=== PATIENT | female | born 1995 | race Hispanic/Latino ===

== ENCOUNTER → 2022-01-24 | Outpatient (REF) ==
[2022-01-25 06:08] LABS: RUBEOLA IgG ANTIBODY >300.0 AU/mL (Immune >16.4)
[2022-01-25 08:09] LABS: HERPES ZOSTER, VARICELLA IgG 952 index (Immune >165)
== END ==
LOC: M LAB 11:19
PROVIDERS: ATTEND Nurse Practitioner Adult Health
DX: Z00.00 Encounter for general adult medical examination without abnormal findings (principal)

== ENCOUNTER → 2022-02-12 | Outpatient (REF) ==
[2022-02-12 15:35] LABS: RSV AMPLIFICATION NEGATIVE (NEGATIVE)
== END ==
LOC: M EMP 14:13
PROVIDERS: ATTEND Family Medicine
DX: Z20.818 Contact with and (suspected) exposure to other bacterial communicable diseases (principal)

== ENCOUNTER → 2022-03-12 | Outpatient (REF) | LOC: M EMP 10:56 | PROVIDERS: ATTEND Family Medicine | DX: Z11.52 Encounter for screening for COVID-19 (principal) ==

== ENCOUNTER → 2022-05-01 | Outpatient (REF) ==
[2022-05-01 11:34] LABS: RSV AMPLIFICATION NEGATIVE (NEGATIVE)
== END ==
LOC: M EMP 10:28
PROVIDERS: ATTEND Family Medicine
DX: Z11.59 Encounter for screening for other viral diseases (principal)

== ENCOUNTER 2023-10-28 13:29 | Emergency (ER) | payer MEDICAID, MEDICARE, SELFPAY ==
[~2023-10-28] VITALS: Ht 154.9 cm; Wt 60.1 kg
[2023-10-28 14:56] LABS: BASO % 0.7 % (0.0-1.0); EOS % 0.2 % (0.0-3.0); HEMOGLOBIN 13.7 g/dl (12.0-15.5); LYMPH # 1.3 10^3/uL (1.5-5.0); LYMPH % 21.6 % (24.0-44.0); MEAN CORPUSCULAR HEMOGLOBIN 29.5 pg (27.0-33.0); MEAN CORPUSCULAR HGB CONC 34.3 g/dl (32.0-36.5); MONO # 0.2 10^3/uL (0.0-0.8); MONO % 3.6 % (2.0-8.0); NEUTROPHILS # 4.5 10^3/uL (1.5-8.5); NEUTROPHILS % 73.6 % (36.0-66.0); PLATELET COUNT, AUTOMATED 307 10^3/uL (150-450); RED BLOOD COUNT 4.65 10^6/uL (4.00-5.40); WHITE BLOOD COUNT 6.1 10^3/uL (4.0-10.0)
[2023-10-28] MEDS: LORazepam 2 MG TAB PO PRN (15:09)
[2023-10-28 15:20] LABS: LIPASE 38 U/L (12-53)
[2023-10-28 15:22] LABS: ALBUMIN 4.2 G/DL (3.2-5.2); ALKALINE PHOSPHATASE 62 U/L (46-116); ALT/SGPT 33 U/L (7.0-40); AST/SGOT 36 U/L (<34); BILIRUBIN,DIRECT 0.3 MG/DL (<0.4); BILIRUBIN,TOTAL 1.2 MG/DL (0.3-1.2); BLOOD UREA NITROGEN 9 MG/DL (9-23); CALCIUM LEVEL 9.9 MG/DL (8.5-10.1); CARBON DIOXIDE LEVEL 27 MMOL/L (20-31); CHLORIDE LEVEL 104 MMOL/L (98-107); CK-MB VALUE MASS < 1.0 NG/ML (<3.6); CREATININE FOR GFR 0.67 MG/DL (0.55-1.30); GLOMERULAR FILTRATION RATE > 60.0 (>60); GLUCOSE, FASTING 109 MG/DL (60-100); MAGNESIUM LEVEL 1.8 MG/DL (1.8-2.4); POTASSIUM SERUM 3.9 MMOL/L (3.5-5.1); SODIUM LEVEL 138 MMOL/L (136-145); TOTAL PROTEIN 8.1 G/DL (5.7-8.2)
[2023-10-28 15:23] LABS: THYROID STIMULATING HORMONE 0.941 uIU/ML (0.55-4.78)
[2023-10-28 15:24] LABS: FREE T4 1.34 NG/DL (0.89-1.76)
[2023-10-28 15:36] LABS: CPK CREATINE PHOSPHOKINASE 78 U/L (34-145); MB/CK RELATIVE INDEX 1.28 (< OR =4)
[2023-10-28 16:10] LABS: HCG, SERUM QUALITATIVE NEGATIVE (NEGATIVE)
[2023-10-28] MEDS: KETOROLAC 30 MG/ML 1ML VIAL IV ONE (16:19)
[2023-10-28 17:05] LABS: CK-MB VALUE MASS < 1.0 NG/ML (<3.6)
[2023-10-28 17:06] LABS: CPK CREATINE PHOSPHOKINASE 62 U/L (34-145); MB/CK RELATIVE INDEX 1.61 (< OR =4)
[2023-10-28] MEDS ORDERED: ISOVUE-370 76% 100ML VIAL As Ordered ONE (17:28)
[2023-10-28] MEDS ORDERED: ATIV2TAB PO (18:56)
[2023-10-28 19:11] VITALS: BP 156/88; TEMP 98.1; O2SAT 100
== END 2023-10-28 19:13 | disposition home or self-care (01) ==
LOC: M ED 13:29
DX: F41.9 Anxiety disorder, unspecified (principal); F10.130 Alcohol abuse with withdrawal, uncomplicated; F17.210 Nicotine dependence, cigarettes, uncomplicated; Z79.899 Other long term (current) drug therapy
CPT/HCPCS: 71045; 71275; 80048; 80076; 82550; 82553; 83690; 83735; 84439; 84443; 84484; 84703; 85025; 85379; 93005; 93041; 94760; 96374; 99285; J1885; Q9967

== ENCOUNTER → 2024-05-08 | Outpatient (CLI) | payer OTHER ==
[~2024-05-08] MED LIST: ADULKIT XX; AMOX125C PO; ASPI81TA26 PO; ATIV2TAB PO; IBUP80TA PO; LABE200T5 PO; NIFE1TAB52 PO
== END ==
LOC: M WHC 09:07 → MERGE 09:07
PROVIDERS: ATTEND Obstetrics & Gynecology
DX: Z34.92 Encounter for supervision of normal pregnancy, unspecified, second trimester (principal); Z3A.25 25 weeks gestation of pregnancy

== ENCOUNTER 2024-05-10 19:10 | Outpatient (CLI) | payer OTHER ==
[~2024-05-10] VITALS: Ht 154.9 cm; Wt 66.2 kg
[2024-05-10] VITALS (14 sets, daily range): BP systolic 127–184; BP diastolic 78–118; O2SAT 100
[~2024-05-10 19:10] MED LIST changes: -ADULKIT XX; -ASPI81TA26 PO; -LABE200T5 PO; -NIFE1TAB52 PO
[2024-05-10] MEDS ORDERED: ASPI81TA26 PO (19:30)
[2024-05-10] MEDS: NIFEdipine 10 MG CAP PO ONE (20:02)
[2024-05-10 20:29] LABS: HEMATOCRIT 32.5 % (36.0-47.0); HEMOGLOBIN 11.3 g/dl (12.0-15.5); MEAN CORPUSCULAR HEMOGLOBIN 29.5 pg (27.0-33.0); MEAN CORPUSCULAR HGB CONC 34.8 g/dl (32.0-36.5); MEAN CORPUSCULAR VOLUME 84.9 fl (80.0-96.0); PLATELET COUNT, AUTOMATED 198 10^3/uL (150-450); RED BLOOD COUNT 3.83 10^6/uL (4.00-5.40); WHITE BLOOD COUNT 8.2 10^3/uL (4.0-10.0)
[2024-05-10 20:45] LABS: TOTAL PROTEIN,RANDOM URINE 45.6 MG/DL (0.0-14.0)
[2024-05-10 20:46] LABS: AMPHETAMINES URINE REFLEX NEGATIVE (NEGATIVE); BARBITURATES URINE REFLEX NEGATIVE (NEGATIVE); BENZODIAZEPINES URINE REFLEX NEGATIVE (NEGATIVE); CANNABINOIDS URINE REFLEX NEGATIVE (NEGATIVE); COCAINE METABOLITE URINE REFLE NEGATIVE (NEGATIVE); METHADONE URINE REFLEX NEGATIVE (NEGATIVE); OPIATES URINE REFLEX NEGATIVE (NEGATIVE); PHENCYCLIDINE URINE REFLEX NEGATIVE (NEGATIVE)
[2024-05-10 20:49] LABS: CREATININE,RANDOM URINE 184.1 MG/DL; LDH LACTATE DEHYDROGENASE 191 U/L (120-246)
[2024-05-10 20:50] LABS: ALT/SGPT 30 U/L (7.0-40); AST/SGOT 38 U/L (<34); BILIRUBIN,TOTAL 0.5 MG/DL (0.3-1.2); CREATININE FOR GFR 0.44 MG/DL (0.55-1.30); GLOMERULAR FILTRATION RATE > 60.0 (>60)
[2024-05-10 20:51] LABS: URIC ACID 4.3 MG/DL (3.1-7.8)
[2024-05-10] MEDS ORDERED: HOME MED LIST COMPLETE! XX SCH (23:05)
[2024-05-10] MEDS: ACETAMINOPHEN 500 MG TAB PO ONE (23:14)
[2024-05-10] MEDS: NIFEdipine 10 MG CAP PO STA (23:14)
[2024-05-11] VITALS (25 sets, daily range): BP systolic 99–170; BP diastolic 56–103
[2024-05-11] MEDS: NIFEdipine 30MG XL TAB PO STA (07:33)
[2024-05-11 08:26] LABS: URIC ACID 4.2 MG/DL (3.1-7.8)
[2024-05-11 08:28] LABS: LDH LACTATE DEHYDROGENASE 145 U/L (120-246)
[2024-05-11 08:29] LABS: ALT/SGPT 23 U/L (7.0-40); AST/SGOT 26 U/L (<34); BILIRUBIN,TOTAL 0.4 MG/DL (0.3-1.2); CREATININE FOR GFR 0.46 MG/DL (0.55-1.30); GLOMERULAR FILTRATION RATE > 60.0 (>60)
[2024-05-11] MEDS ORDERED: NIFE1TAB52 PO (09:05)
[2024-05-11] MEDS: ASPIRIN 81MG ENTERIC TABLET PO SCH (09:57)
[2024-05-11] MEDS: LABETALOL 200 MG TAB PO ONE (10:36)
[2024-05-11] MEDS: BETAMETHASONE SOLUSPAN 6MG/ML 5ML VIAL IM ONE (10:37)
[2024-05-11] MEDS ORDERED: LABE200T5 PO (10:58)
[2024-05-11] MEDS ORDERED: ADULKIT XX (11:00)
[2024-05-11] MEDS ORDERED: CALCIUM CARBONATE 500 MG CHEW U/D PO PRN (11:05)
== END 2024-05-11 12:00 | disposition home or self-care (01) ==
LOC: MERGE 19:10 → M LDO 19:10
PROVIDERS: ATTEND Specialist
DX: O10.012 Pre-existing essential hypertension complicating pregnancy, second trimester (principal); O09.32 Supervision of pregnancy with insufficient antenatal care, second trimester; O99.332 Smoking (tobacco) complicating pregnancy, second trimester; F17.210 Nicotine dependence, cigarettes, uncomplicated; O09.12 Supervision of pregnancy with history of ectopic pregnancy, second trimester; O09.42 Supervision of pregnancy with grand multiparity, second trimester; Z3A.26 26 weeks gestation of pregnancy
CPT/HCPCS: 36415; 59025; 80307; 82247; 82570; 83615; 84156; 84450; 84460; 84550; 85027; 96372; G0463; J0702

== ENCOUNTER 2024-05-12 10:44 | Outpatient (CLI) | payer OTHER ==
[~2024-05-12] VITALS: Ht 157.5 cm; Wt 66.5 kg
[~2024-05-12 10:44] MED LIST changes: +ADULKIT XX; +ASPI81TA26 PO; +LABE200T5 PO; +NIFE1TAB52 PO
[2024-05-12] MEDS: BETAMETHASONE SOLUSPAN 6MG/ML 5ML VIAL IM ONE (11:19)
== END 2024-05-12 11:23 | disposition home or self-care (01) ==
LOC: M LDO 10:44 → MERGE 10:44 → M LDO 11:23
PROVIDERS: ATTEND Obstetrics & Gynecology
DX: O10.012 Pre-existing essential hypertension complicating pregnancy, second trimester (principal); O99.012 Anemia complicating pregnancy, second trimester; O09.32 Supervision of pregnancy with insufficient antenatal care, second trimester; O09.42 Supervision of pregnancy with grand multiparity, second trimester; D50.9 Iron deficiency anemia, unspecified; Z3A.26 26 weeks gestation of pregnancy
CPT/HCPCS: 96372; J0702

== ENCOUNTER 2024-05-18 02:39 | Outpatient (CLI) | payer MEDICAID, OTHER ==
[2024-05-18] VITALS (26 sets, daily range): BP systolic 125–180; BP diastolic 83–117; O2SAT 100
[~2024-05-18] VITALS: Ht 157.5 cm; Wt 68.0 kg
[2024-05-18] MEDS ORDERED: HOME MED LIST COMPLETE! XX SCH (03:00)
[2024-05-18] MEDS: ACETAMINOPHEN 500 MG TAB PO ONE (03:15)
[2024-05-18 03:37] LABS: HEMATOCRIT 29.6 % (36.0-47.0); HEMOGLOBIN 10.2 g/dl (12.0-15.5); MEAN CORPUSCULAR HEMOGLOBIN 29.4 pg (27.0-33.0); MEAN CORPUSCULAR HGB CONC 34.5 g/dl (32.0-36.5); MEAN CORPUSCULAR VOLUME 85.3 fl (80.0-96.0); PLATELET COUNT, AUTOMATED 258 10^3/uL (150-450); RED BLOOD COUNT 3.47 10^6/uL (4.00-5.40); WHITE BLOOD COUNT 10.2 10^3/uL (4.0-10.0)
[2024-05-18 03:37] LABS: CREATININE,RANDOM URINE 17.3 MG/DL
[2024-05-18 03:46] LABS: TOTAL PROTEIN,RANDOM URINE < 6.0 MG/DL (0.0-14.0)
[2024-05-18] MEDS: hydrALAZINE 20MG/ML 1ML VIAL IV ONE ×2 (03:50→04:20)
[2024-05-18 03:59] LABS: URIC ACID 4.3 MG/DL (3.1-7.8)
[2024-05-18 04:01] LABS: LDH LACTATE DEHYDROGENASE 143 U/L (120-246)
[2024-05-18 04:02] LABS: ALT/SGPT 11 U/L (7.0-40); AST/SGOT < 8 U/L (<34); BILIRUBIN,TOTAL 0.3 MG/DL (0.3-1.2); CREATININE FOR GFR 0.48 MG/DL (0.55-1.30); GLOMERULAR FILTRATION RATE > 60.0 (>60)
[2024-05-18] MEDS: BICITRA 30ML SOLN UDC PO ONE (04:43)
[2024-05-18] MEDS: PERCOCET 5MG/325MG TAB PO ONE (05:16)
[2024-05-18] MEDS: LABETALOL 100MG TAB PO SCH (08:27)
[2024-05-18] MEDS: NIFEdipine 30MG XL TAB PO SCH (08:27)
[2024-05-18] MEDS: LABETALOL 100MG/20ML VIAL IV STA (10:03)
[2024-05-18] MEDS: ASPIRIN 81MG ENTERIC TABLET PO ONE (10:08)
[2024-05-18] MEDS: oxyCODONE 5MG TAB PO ONE (10:16)
[2024-05-18] MEDS: NIFEdipine 10 MG CAP PO STA (10:40)
[2024-05-19] MEDS ORDERED: FAMOTIDINE 20 MG TAB PO SCH (09:00)
[2024-05-19] MEDS ORDERED: ASPIRIN 81MG ENTERIC TABLET PO SCH (09:00)
== END 2024-05-18 09:57 | disposition short-term general hospital (02) ==
LOC: M LDO 02:39
PROVIDERS: ATTEND Obstetrics & Gynecology
DX: O10.012 Pre-existing essential hypertension complicating pregnancy, second trimester (principal); Z3A.27 27 weeks gestation of pregnancy; Z79.82 Long term (current) use of aspirin; Z79.899 Other long term (current) drug therapy
CPT/HCPCS: 82247; 82570; 83615; 84156; 84450; 84460; 84550; 85027; 96374; 96375; 96376; J0360; J1920

== ENCOUNTER → 2024-06-05 | Outpatient (CLI) | payer OTHER ==
[~2024-06-05] MED LIST changes: +ACET-907 PO; +AMOX500C; +HYDR-3363; +LABE20TAB; +NIFE1TAB51; +[UNRECOGNIZED DRUG - CODE] PO
[2024-06-05 15:48] LABS: HEMATOCRIT 32.3 % (36.0-47.0); MEAN CORPUSCULAR HEMOGLOBIN 28.9 pg (27.0-33.0); MEAN CORPUSCULAR HGB CONC 34.1 g/dl (32.0-36.5); MEAN CORPUSCULAR VOLUME 84.8 fl (80.0-96.0); PLATELET COUNT, AUTOMATED 267 10^3/uL (150-450); RED BLOOD COUNT 3.81 10^6/uL (4.00-5.40); WHITE BLOOD COUNT 8.5 10^3/uL (4.0-10.0)
[2024-06-05 16:07] LABS: GLUCOSE CHALLENGE TEST 1 HOUR 113 MG/DL (LESS THAN 140)
[2024-06-05 16:43] LABS: HIV 1&2 SCREEN NEGATIVE (NEGATIVE)
[2024-06-05 16:51] LABS: HEPATITIS C VIRUS ABY INDEX 0.02 INDEX (<0.8)
[2024-06-05 16:57] LABS: Trichomonas vaginalis (AMP) NOT DETECTED (NEGATIVE)
[2024-06-05 17:21] LABS: GC DNA AMPLIFICATION NEGATIVE (NEGATIVE)
== END ==
LOC: M PLALAB 12:42
PROVIDERS: ATTEND Advanced Practice Midwife
DX: O10.012 Pre-existing essential hypertension complicating pregnancy, second trimester (principal)

== ENCOUNTER 2024-06-09 16:56 | Outpatient (CLI) | payer OTHER ==
[~2024-06-09] VITALS: Ht 157.5 cm; Wt 68.5 kg
[~2024-06-09 16:56] MED LIST changes: -ACET-907 PO; -AMOX500C; -HYDR-3363; -LABE20TAB; -NIFE1TAB51; -[UNRECOGNIZED DRUG - CODE] PO
[2024-06-09] MEDS ORDERED: NIFE1TAB51 (17:16)
[2024-06-09] MEDS ORDERED: LABE20TAB (17:16)
[2024-06-09] MEDS ORDERED: ACET-907 PO (17:18)
[2024-06-09 17:21] VITALS: BP 150/100; TEMP 99.5
[2024-06-09 17:24] VITALS: BP 148/102
[2024-06-09] MEDS ORDERED: AMOX500C (17:36)
[2024-06-09 17:39] VITALS: BP 138/93
[2024-06-09] MEDS ORDERED: HYDR-3363 (17:44)
[2024-06-09] MEDS ORDERED: HOME MED LIST COMPLETE! XX SCH (17:45)
[2024-06-09] MEDS: LABETALOL 200 MG TAB PO ONE (17:53)
[2024-06-09 18:22] LABS: HEMATOCRIT 30.7 % (36.0-47.0); HEMOGLOBIN 10.6 g/dl (12.0-15.5); MEAN CORPUSCULAR HGB CONC 34.5 g/dl (32.0-36.5); MEAN CORPUSCULAR VOLUME 83.9 fl (80.0-96.0); PLATELET COUNT, AUTOMATED 261 10^3/uL (150-450); RED BLOOD COUNT 3.66 10^6/uL (4.00-5.40); WHITE BLOOD COUNT 7.3 10^3/uL (4.0-10.0)
[2024-06-09 18:43] LABS: CREATININE,RANDOM URINE 36.6 MG/DL
[2024-06-09 18:48] LABS: TOTAL PROTEIN,RANDOM URINE < 6.0 MG/DL (0.0-14.0)
[2024-06-09 18:52] LABS: URIC ACID 5.4 MG/DL (3.1-7.8)
[2024-06-09 18:55] LABS: ALT/SGPT 13 U/L (7.0-40); AST/SGOT 14 U/L (<34); BILIRUBIN,TOTAL 0.2 MG/DL (0.3-1.2); CREATININE FOR GFR 0.52 MG/DL (0.55-1.30); GLOMERULAR FILTRATION RATE > 90.0 (>60); LDH LACTATE DEHYDROGENASE 135 U/L (120-246)
[2024-06-09 18:56] LABS: ALBUMIN 2.7 G/DL (3.2-5.2); ALKALINE PHOSPHATASE 152 U/L (35-104); ALT/SGPT 12 U/L (7.0-40); AST/SGOT 13 U/L (<34); BILIRUBIN,TOTAL 0.2 MG/DL (0.3-1.2); BLOOD UREA NITROGEN 9 MG/DL (9-23); CALCIUM LEVEL 9.4 MG/DL (8.5-10.1); CARBON DIOXIDE LEVEL 22 MMOL/L (20-31); CHLORIDE LEVEL 108 MMOL/L (98-107); CREATININE FOR GFR 0.53 MG/DL (0.55-1.30); GLOMERULAR FILTRATION RATE > 90.0 (>60); GLUCOSE, FASTING 103 MG/DL (60-100); POTASSIUM SERUM 3.9 MMOL/L (3.5-5.1); SODIUM LEVEL 140 MMOL/L (136-145); TOTAL PROTEIN 6.5 G/DL (5.7-8.2)
[2024-06-09 19:10] VITALS: BP 139/86
[2024-06-09 19:25] VITALS: BP 135/86
[2024-06-09 19:40] VITALS: BP 133/76
[2024-06-10] MEDS ORDERED: [UNRECOGNIZED DRUG - CODE] PO (22:26)
== END 2024-06-09 20:15 | disposition home or self-care (01) ==
LOC: M LDO 16:56
PROVIDERS: ATTEND Obstetrics & Gynecology
DX: O10.013 Pre-existing essential hypertension complicating pregnancy, third trimester (principal); O26.23 Pregnancy care for patient with recurrent pregnancy loss, third trimester; O99.333 Smoking (tobacco) complicating pregnancy, third trimester; O09.33 Supervision of pregnancy with insufficient antenatal care, third trimester; O09.43 Supervision of pregnancy with grand multiparity, third trimester; O09.213 Supervision of pregnancy with history of pre-term labor, third trimester; O09.13 Supervision of pregnancy with history of ectopic pregnancy, third trimester; O99.313 Alcohol use complicating pregnancy, third trimester; F10.11 Alcohol abuse, in remission; F17.210 Nicotine dependence, cigarettes, uncomplicated; Z3A.30 30 weeks gestation of pregnancy
CPT/HCPCS: 36415; 59025; 80053; 82247; 82570; 83615; 84156; 84450; 84460; 84550; 85027; G0463

== ENCOUNTER 2024-06-10 22:01 | Outpatient (CLI) | payer OTHER ==
[2024-06-10] VITALS (7 sets, daily range): BP systolic 156–181; BP diastolic 79–114; O2SAT 98
[~2024-06-10] VITALS: Ht 157.5 cm; Wt 67.3 kg
[~2024-06-10 22:01] MED LIST changes: +ACET-907 PO; +AMOX500C; +HYDR-3363; +LABE20TAB; +NIFE1TAB51
[2024-06-10] MEDS ORDERED: [UNRECOGNIZED DRUG - CODE] PO (22:26)
[2024-06-10] MEDS ORDERED: HOME MED LIST COMPLETE! XX SCH (22:30)
[2024-06-10] MEDS: LABETALOL 200 MG TAB PO SCH (22:32)
[2024-06-10] MEDS: hydrALAZINE 20MG/ML 1ML VIAL IV STA (23:13)
[2024-06-10 23:20] LABS: HEMATOCRIT 29.2 % (36.0-47.0); HEMOGLOBIN 10.1 g/dl (12.0-15.5); MEAN CORPUSCULAR HEMOGLOBIN 29.2 pg (27.0-33.0); MEAN CORPUSCULAR HGB CONC 34.6 g/dl (32.0-36.5); MEAN CORPUSCULAR VOLUME 84.4 fl (80.0-96.0); PLATELET COUNT, AUTOMATED 257 10^3/uL (150-450); RED BLOOD COUNT 3.46 10^6/uL (4.00-5.40)
[2024-06-10 23:35] LABS: TOTAL PROTEIN,RANDOM URINE 13.3 MG/DL (0.0-14.0)
[2024-06-10 23:37] LABS: URIC ACID 5.7 MG/DL (3.1-7.8)
[2024-06-10 23:39] LABS: LDH LACTATE DEHYDROGENASE 150 U/L (120-246)
[2024-06-10 23:40] LABS: ALT/SGPT 15 U/L (7.0-40); AST/SGOT 15 U/L (<34); BILIRUBIN,TOTAL 0.3 MG/DL (0.3-1.2); GLOMERULAR FILTRATION RATE > 90.0 (>60)
[2024-06-10 23:40] LABS: CREATININE,RANDOM URINE 26.9 MG/DL
[2024-06-11] VITALS (19 sets, daily range): BP systolic 137–171; BP diastolic 86–106
[2024-06-11] MEDS: LABETALOL 100MG/20ML VIAL IV STA ×3 (00:09→01:28)
[2024-06-11] MEDS ORDERED: CALCIUM GLUCONATE 1,000 MG in DEXTROSE 5% (D5W) MINI-BAG PLU 100 ML IV PRN (01:45)
[2024-06-11] MEDS: LR 1,000 ML IV SCH (02:05)
[2024-06-11] MEDS: MAG Sulf (L&D) 4 GM/100 ML 4 GM in IV 1 EA IV ONE (02:05)
[2024-06-11] MEDS: MAG Sulf (OBGYN) 20GM/500ML 20,000 MG in IV 1 EA IV SCH (02:25)
[2024-06-11] MEDS ORDERED: NIFEdipine 30MG XL TAB PO SCH (09:00)
== END 2024-06-11 03:58 | disposition short-term general hospital (02) ==
LOC: M LDO 22:01
PROVIDERS: ATTEND Advanced Practice Midwife
DX: O11.3 Pre-existing hypertension with pre-eclampsia, third trimester (principal); O36.5930 Maternal care for other known or suspected poor fetal growth, third trimester, not applicable or unspecified; O10.013 Pre-existing essential hypertension complicating pregnancy, third trimester; O99.313 Alcohol use complicating pregnancy, third trimester; O99.333 Smoking (tobacco) complicating pregnancy, third trimester; O09.33 Supervision of pregnancy with insufficient antenatal care, third trimester; O09.43 Supervision of pregnancy with grand multiparity, third trimester; O09.213 Supervision of pregnancy with history of pre-term labor, third trimester; O09.293 Supervision of pregnancy with other poor reproductive or obstetric history, third trimester; O09.13 Supervision of pregnancy with history of ectopic pregnancy, third trimester; F17.210 Nicotine dependence, cigarettes, uncomplicated; F10.10 Alcohol abuse, uncomplicated; Z91.198 Patient's noncompliance with other medical treatment and regimen for other reason; Z3A.30 30 weeks gestation of pregnancy
CPT/HCPCS: 59025; 76816; 76819; 76820; 82247; 82570; 83615; 84156; 84450; 84460; 84550; 85027; 96374; 96376; G0463; J0360; J1920; J3475

== ENCOUNTER → 2024-11-19 | Outpatient (CLI) | payer OTHER ==
[~2024-11-19] MED LIST changes: +NORV5TAB PO; +[UNRECOGNIZED DRUG - CODE] PO
== END ==
LOC: M EKG 15:37
PROVIDERS: ATTEND Student in an Organized Health Care Education/Training Program
DX: R00.2 Palpitations (principal); Z53.9 Procedure and treatment not carried out, unspecified reason

== ENCOUNTER → 2024-12-08 | Outpatient (REF) ==
[2024-12-08 09:57] LABS: SOFIA COVID ANTIGEN NEGATIVE (NEGATIVE)
== END ==
LOC: M EMP 09:32
PROVIDERS: ATTEND Family Medicine
DX: Z11.52 Encounter for screening for COVID-19 (principal)